=== PATIENT | female | born 1990 | race Asian ===

== ENCOUNTER 2018-10-01 15:51 | Inpatient (IN) | payer OTHER ==
[~2018-10-01] VITALS: Ht 162.6 cm; Wt 57.6 kg
[2018-10-01 15:58] VITALS: Ht 162.6 cm; Wt 57.6 kg
--- NOTE | 2018-10-01 16:23 | NUR ---
PT AMBULATED TO ROOM 9 FOR EVAL.
--- NOTE | 2018-10-01 16:29 | NUR ---
PT LYING IN BED, AAOX4 WITH C/O GENERALIZED WEAKNESS WITH VAZ AND FEVER X 2 DAYS WITH VAGINAL BLEEDING X 1 MONTH S/P TAKING AN PILL GIVEN TO HER BY HER OBGYN AFTER FINDING NO HEARTBEAT AT 9 WEEKS . PT STATES SHE WENT TO HER PCP AND OBGYN FOR CONTINUTED BLEEDING AND FEVER AND WAS TOLD TODAY THAT SHE NEEDED TO COME TO THE ER FOR LOW H/H. PT NOTED TO BE PALE IN COMPLEXION. AT BEDSIDE.
[2018-10-01 17:14] LABS: BASOPHIL % 0.5 % (0-2); PLATELET COUNT 329 x10^3mcL (130-400)
[2018-10-01 17:15] LABS: CALCIUM 8.9 mg/dL (8.5-10.1); CARBON DIOXIDE 25.5 mmol/L (21-32); CHLORIDE SERUM 105 mmol/L (98-107); CREATININE SERUM 0.6 mg/dL (0.6-1.0); GFR1 > 60 mL/min; GLUCOSE SERUM 104 mg/dL (74-106); POTASSIUM SERUM 4.2 mmol/L (3.5-5.1); SODIUM SERUM 139 mmol/L (136-145)
[2018-10-01 17:23] LABS: ALKALINE PHOSPHATASE 58 U/L (46-116); ALT/SGPT 26 U/L (14-59); AST/SGOT 11 U/L (15-37); BILIRUBIN TOTAL 0.2 mg/dL (0.20-1.00); TOTAL PROTEIN, SERUM 7.1 g/dL (6.4-8.2)
[2018-10-01 17:25] LABS: ALBUMIN 3.3 g/dL (3.4-5.0)
--- NOTE | 2018-10-01 17:34 | NUR ---
PT OFF OF UNIT TO US VIA WHEELCHAIR.
[2018-10-01 17:44] LABS: rbc morphology (normal/abnorm) ABNORMAL (NORMAL)
--- NOTE | 2018-10-01 19:25 | NUR ---
1ST UNIT OF PRBC'S STARTED.
--- NOTE | 2018-10-01 19:34 | NUR ---
CHAPERONED DR DALE WITH PELVIC EXAM.
[2018-10-01] MEDS ORDERED: AUGMENTIN 875-1 EACH PO (19:37)
--- NOTE | 2018-10-01 20:07 | NUR ---
REPORT GIVEN TO DB CANDELARIA.
[2018-10-01 20:31] LABS: UA SPECIFIC GRAVITY <=1.005 (1.005-1.035); microscopic required? YES; urine erythrocyte 3+ (NEGATIVE)
[2018-10-01 20:41] LABS: MAGNESIUM 2.3 mg/dL (1.8-2.4); PHOSPHOROUS 4.4 mg/dL (2.5-4.9)
[2018-10-01 20:41] LABS: AMPHETAMINE QUAL UR NONE DETECTED (See below)
[2018-10-01 20:43] LABS: CHOLESTEROL/HDL RATIO 3.2
[2018-10-01 20:50] LABS: FREE T4 1.09 ng/dL (0.76-1.46); T4(THYROXINE) 8.4 ug/dL (4.7-13.3)
[2018-10-01 20:51] VITALS: BP 96/59
[2018-10-01 20:51] LABS: T3 TOTAL 1.32 ng/mL
--- NOTE | 2018-10-01 21:00 | NUR ---
RECEIVED REPORT FROM ZIGGY CANDELARIA FOR CONTINUATION CARE. PATIENT RESTING IN BED. RESPIRATION EVEN AND UNLABORED, ON ROOM AIR. ONGOING 1ST UNIT OF PRBC. AT THE BEDSIDE. WILL CONTINUE TO MONITOR.
--- NOTE | 2018-10-01 21:04 | NUR ---
RECEIVED PT FROM ER, PT ADMIT FOR SYMPTOMATIC ANEMIA, INCOMPLETE . PT IS A/O X4, VERBAL RESPONSIVE, ABLE TO TELL WHAT SHE NEEDS. LUNG SOUND CLEAR BILATERAL,NO COUGH, NO SOB, PT IS ON TELE 18, ST, HR 101 AT THIS TIME, BOWEL SOUND PRESENT ALL 4 QUADRANTS, NO DISTENTION, NO TENDER. PEDAL PUSLSE PRESENT BOTH FEET, TRACE EDEMA BLE. IV AT LEFT AC, NO LEAKING, NO INFILTRAITON. PT STILL C/O VAGINAL BLEEDING AT THE MOMENT. DENY ANY PAIN OR DISCOMFORT, CONTINUE THE BLOOD TRANSFUSION. ALL ADLS ASSIST, ALL NEED MET, CALL LIGHT IN REACH, WILL CONTINUE TO MONITOR.
[2018-10-01 22:53] LABS: BASOPHIL % 0.4 % (0-2); PLATELET COUNT 318 x10^3mcL (130-400)
[2018-10-01 22:55] LABS: RED CELL DISTRIBUTION WIDTH 19.3 % (11.5-14.5)
--- NOTE | 2018-10-01 23:00 | NUR ---
1ST UNIT OF PRBC COMPLETED. LATEST VITAL SIGNS FOLLOWS BP 95/54, HR 99, RR 18, TEMP 99.4, O2 SAT 99% NO TRANSFUSION REACTION NOTED. WILL CONTINUE TO MONITOR.
--- NOTE | 2018-10-01 23:03 | NUR ---
DR. Leon Ragsdale call in and updated on patients condition. Patient is for D&C for tomorrow at 12noon. NPO after midnight and dc oral amoxillin and change it to Ancef [address] Walter Sanders made aware and will place order in.
[2018-10-01 23:04] LABS: rbc morphology (normal/abnorm) ABNORMAL (NORMAL); tear drop cell (dacryocyte) 1+
--- NOTE | 2018-10-01 23:25 | NUR ---
2ND UNIT OF PRBC STARTED. PRE TRANSFUSION VITAL SIGNS FOLLOWS BP 95/54, HR 99, RR 18, TEMP 99.4, O2 SAT 98% WILL CONTINUE TO MONITOR.
--- NOTE | 2018-10-02 03:00 | NUR ---
2ND UNIT OF PRBC COMPLETED. LATEST VITAL SIGNS BP 90/50, HR 75, RR 18, TEMP 98.0, O2 SAT 100% NO TRANSFUSION REACTION NOTED. WILL CONTINUE TO MONITOR.
--- NOTE | 2018-10-02 05:15 | NUR ---
STARTED 3RD UNIT OF PRBC. PRE TRANSFUSION VITAL SIGNS FOLLOWS BP 94/54, HR 74, RR 18, TEMP 98.1, O2 SAT 99% WILL CONTINUE TO MONITOR.
[2018-10-02 06:13] VITALS: BP 94/54
--- NOTE | 2018-10-02 06:13 | NUR ---
PATIENT RESTING IN BED. ONGOING 3RD UNIT OF PRBC. NO TRANSFUSION REACTION NOTED AT THIS TIME. DENIES ANY DISCOMFORT/PAIN. ON NPO EXCEPT MEDS FOR D&C THIS AFTERNOON. ASSISTED WITH NEEDS. SAFETY OBSERVED. PLACED BED IN THE LOWEST POSITION. PLACED CALL LIGHT WITHIN REACH AT ALL TIMES. AT THE BEDSIDE.
--- NOTE | 2018-10-02 07:15 | NUR ---
RECEIVED PATIENT FROM CROSSCUTTER NURSE. PATIENT IS AWAKE, ALERT AND ORIENTED. TELE#18, SR, HR 94. ON ROOM AIR, BREATHING EVEN AND UNLABORED. DENIES SOB AND CHEST PAIN. IV NOTED TO LAC, BLOOD PRODUCT INFUSING WELL ORDERED, NO S/S ERYTHEMA AT SITE. VS STABLE. CALL LIGHT WITHIN EASY REACH. FAMILY AT BEDSIDE. PATIENT NPO SINCE 0000: D/C SCHEDULED TODAY FOR 1200. WILL CONTINUE PLAN OF CARE.
[2018-10-02 08:31] VITALS: BP 89/55
--- NOTE | 2018-10-02 08:31 | NUR ---
BLOOD TRANSFUSION COMPLETE AT THIS TIME. NO S/S ADVERSE REACTION. VS STABLE. PATIENT TOLERATED WELL. LAB TO BE CALLED FOR AM LABS TO BE DRAWN. WILL CONTINUE TO MONITOR.
[2018-10-02 09:21] LABS: BASOPHIL % 0.5 % (0-2); PLATELET COUNT 317 x10^3mcL (130-400)
[2018-10-02 09:26] LABS: RED CELL DISTRIBUTION WIDTH 17.3 % (11.5-14.5)
[2018-10-02 09:35] LABS: CALCIUM 8.6 mg/dL (8.5-10.1); CARBON DIOXIDE 25.8 mmol/L (21-32); CHLORIDE SERUM 108 mmol/L (98-107); CREATININE SERUM 0.7 mg/dL (0.6-1.0); GFR1 > 60 mL/min; GLUCOSE SERUM 95 mg/dL (74-106); MAGNESIUM 2.1 mg/dL (1.8-2.4); POTASSIUM SERUM 4.1 mmol/L (3.5-5.1); SODIUM SERUM 142 mmol/L (136-145)
[2018-10-02 09:38] LABS: TOTAL IRON BINDING CAPACITY 403 ug/dL (250-450)
[2018-10-02 09:39] LABS: IRON 255 ug/dL (50-170)
--- NOTE | 2018-10-02 11:07 | NUR ---
PATIENT TAKEN DOWN TO OR.
[2018-10-02 13:09] VITALS: BP 98/67
--- NOTE | 2018-10-02 13:17 | NUR ---
PATIENT BACK FROM OR AT THIS TIME. AWAKE, ALERT AND ORIENTED. VS STABLE. PATIENT ABLE TO AMBULATE FROM [place] TO RESTROOM STEADILY. DENIES PAIN AND DISCOMFORT. WILL CONTINUE TO CLOSELY MONITOR.
[2018-10-02 13:26] VITALS: BP 98/67
--- NOTE | 2018-10-02 16:38 | NUR ---
DR ENRIQUEZ AT BEDSIDE TO UPDATE PATIENT ON PLAN OF CARE.
[2018-10-02] MEDS ORDERED: DOXYCYCLINE HY100 MG PO (17:43)
[2018-10-02] MEDS ORDERED: KEFLEX500 M1 PO (17:45)
--- NOTE | 2018-10-02 18:26 | NUR ---
PATIENT DC'D HOME AT THIS TIME. AWAKE, ALERT AND ORIENTED. DENIES PAIN AND DISCOMFORT. HEATHER PAD PROVIDED TO PATIENT UPON DC. ALL DC INSTRUCTIONS GIVEN TO PATIENT. ALL NEW PRESCRIPTIONS GIVEN TO PATIENT. ALL QUESTIONS ANSWERED REGARDING DC. TELE REMOVED AND RETURNED TO PROCUREMENT SERVICES MANAGER. ALL PERSONAL BELONGINGS GATHERED AND TAKEN WITH PATIENT AT TIME OF DC.
== END 2018-10-02 18:36 | disposition home or self-care (01) | DRG 770 ==
LOC: ED 15:51 → DU 19:39 → EDBD 19:39 → DU 20:50
PROVIDERS: Obstetrics & Gynecology; ADMIT Internal Medicine
PROC: 30233N1 Transfusion of Nonautologous Red Blood Cells into Peripheral Vein, Percutaneous Approach (ICD-10-PCS; 2018-10-01)
PROC: 10D17ZZ Extraction of Products of Conception, Retained, Via Natural or Artificial Opening (ICD-10-PCS; principal; 2018-10-02 12:00)
DX: O03.1 Delayed or excessive hemorrhage following incomplete spontaneous abortion (principal); O03.4 Incomplete spontaneous abortion without complication; D50.0 Iron deficiency anemia secondary to blood loss (chronic); O03.0 Genital tract and pelvic infection following incomplete spontaneous abortion
CPT/HCPCS: 84439; C1758; G0378; J0690; J2250; J2704; J7030; J7050; J7120; P9016; Q0163